=== PATIENT | male | born 1970 | race Caucasian/White ===

== ENCOUNTER 2024-10-06 13:18 | Inpatient (IN) | payer OTHER ==
[2024-10-06] VITALS (29 sets, daily range): BP systolic 105–153; BP diastolic 60–105; PULSE 70–99; RESP 15–22; TEMP 97.8–98.9; O2SAT 89–100
[~2024-10-06] VITALS: Ht 180.3 cm; Wt 107.5 kg
[2024-10-06] MEDS ORDERED: SODIUM CHLORIDE 0.9% 1000ML 1,000 ML IV SCH (13:45)
[2024-10-06 14:18] LABS: BASOPHILS % 0.4 % (0.0-1.0); EOSINOPHILS # (AUTO) 0.1 (0.0-0.4); HEMATOCRIT 46.8 % (38.2-49.6); HEMOGLOBIN 13.8 g/dL (14.0-18.0); LYMPHOCYTES # (AUTO) 1.7 (1.0-3.2); LYMPHOCYTES % 25.3 % (18.0-39.1); MEAN CORPUSCULAR HEMOGLOBIN 28.2 pg (28-32); MEAN CORPUSCULAR HGB CONC 29.5 g/dL (31-35); MEAN CORPUSCULAR VOLUME 95.7 fL (81-99); MONOCYTES # (AUTO) 0.6 (0.2-0.8); MONOCYTES % 8.6 % (4.4-11.3); NEUTROPHILS # (AUTO) 4.3 (2.1-6.9); NEUTROPHILS % 64.3 % (38.7-80.0); PLATELET COUNT 142 x10e3/uL (140-360); RED BLOOD COUNT 4.89 x10e6/uL (4.3-5.7); RED CELL DISTRIBUTION WIDTH 13.2 % (11.7-14.4); WHITE BLOOD COUNT 6.75 x10e3/uL (4.8-10.8)
[2024-10-06] MEDS: OSELTAMIVIR PHOSPHATE 75 MG CAP PO ONE (14:19)
[2024-10-06 14:20] LABS: ABG PH 7.28 (7.35-7.45)
[2024-10-06] MEDS: ACETAMINOPHEN 1000 MG/100 ML IV STA (14:20)
[2024-10-06 14:21] LABS: ABG HCO3 36 mmol/L (22-26); ABG PCO2 77 mmHg (35-45); ABG PO2 72 mmHg (80-105); ABG TCO2 38
[2024-10-06] MEDS: KETOROLAC TROMETHAMINE 30 MG/ML VIAL IV STA (14:21)
[2024-10-06] MEDS: PIPERACILLIN/TAZOBACTAM 4.5 GM in SODIUM CHLORIDE 0.9% 100 ML IV SCH (14:21)
[2024-10-06] MEDS: ALBUTEROL/IPRATROPIUM 3 ML NEB NEB ONE (14:23)
[2024-10-06] MEDS: DEXAMETHASONE SOD PHOS 10 MG/1 ML VIAL IV ONE (14:24)
[2024-10-06 14:34] LABS: INFLUENZA A AG NEGATIVE (NEGATIVE)
[2024-10-06 14:35] LABS: CORONAVIRUS COVID-19 AG NEGATIVE (NEGATIVE); INFLUENZA B AG NEGATIVE (NEGATIVE)
[2024-10-06 14:40] LABS: ALBUMIN 3.3 g/dL (3.5-5.0); ALBUMIN/GLOBULIN RATIO 0.9 (0.8-2.0); ANION GAP 15.4 mmol/L (8-16); BILIRUBIN,TOTAL 1.2 mg/dL (0.2-1.2); CREATININE, SERUM 0.98 mg/dL (0.72-1.25); POTASSIUM 4.4 mmol/L (3.5-5.1); TOTAL PROTEIN 6.8 g/dL (6.5-8.1)
[2024-10-06] MEDS: INSULIN REGULAR, HUMAN 100 UNIT/1 ML IV ONE (14:58)
[2024-10-06] MEDS: ALBUTEROL SULF 0.083% NEB SOLN 3 ML NEB NEB PRN (15:14)
[2024-10-06] MEDS ORDERED: DEXTROSE 50% SYRINGE 50 ML IV PRN (18:00)
[2024-10-06] MEDS ORDERED: CLOPIDOGREL75 MG PO (18:11)
[2024-10-06] MEDS ORDERED: NEURONTIN300 MG PO (18:11)
[2024-10-06] MEDS ORDERED: FERROUS SULFAT325 MG PO (18:11)
[2024-10-06] MEDS ORDERED: FUROSEMIDE40 MG PO (18:11)
[2024-10-06] MEDS ORDERED: ROPINIROLE HCL1 MG PO (18:11)
[2024-10-06] MEDS ORDERED: LOSARTAN POTASS25 MG PO (18:11)
[2024-10-06] MEDS ORDERED: OMEPRAZOLE40 MG PO (18:11)
[2024-10-06] MEDS ORDERED: ASPIRIN81 MG PO (18:11)
[2024-10-06] MEDS ORDERED: ATORVASTATIN CA20 MG PO (18:11)
[2024-10-06] MEDS ORDERED: MIRTAZAPINE15 MG PO (18:11)
[2024-10-06] MEDS ORDERED: TRESIBA100 UNIT/1 SC (18:11)
[2024-10-06] MEDS ORDERED: COREG12.5 MG PO (18:11)
[2024-10-06] MEDS ORDERED: MELATONIN3 MG PO (18:11)
[2024-10-06] MEDS: FUROSEMIDE INJ 10 MG/ML 4 ML VIAL IV STA (18:13)
[2024-10-06] MEDS: INSULIN GLARGINE 100 UNITS/ML VIAL SQ SCH (21:00)
[2024-10-06] MEDS: ATORVASTATIN 40 MG TAB PO SCH (21:00)
[2024-10-06] MEDS: INSULIN REGULAR, HUMAN 100 UNIT/1 ML SQ SCH (21:00)
[2024-10-07] VITALS (13 sets, daily range): BP systolic 123–161; BP diastolic 72–89; PULSE 78–106; RESP 12–20; O2SAT 88–99
[2024-10-07] MEDS ORDERED: PANTOPRAZOLE SOD 40 MG TABEC PO SCH (07:30)
[2024-10-07] MEDS ORDERED: FERROUS SULFATE 325 MG TAB PO SCH (09:00)
[2024-10-07] MEDS ORDERED: ASPIRIN 81 MG CHEW TAB PO SCH (09:00)
[2024-10-07] MEDS ORDERED: CLOPIDOGREL BISULFATE 75 MG TAB PO SCH (09:00)
[2024-10-08 06:51] LABS: ABG HCO3 36 mmol/L (22-26); ABG PCO2 77 mmHg (35-45); ABG PH 7.28 (7.35-7.45); ABG PO2 72 mmHg (80-105); ABG TCO2 38
== END 2024-10-07 03:15 | disposition left against medical advice (07) | DRG 871 ==
LOC: ER 13:31 → ERHOLD 14:57 → ICU 17:17
PROVIDERS: ADMIT Family Medicine; ATTEND Family Medicine
PROC: 5A09357 Assistance with Respiratory Ventilation, Less than 24 Consecutive Hours, Continuous Positive Airway Pressure (ICD-10-PCS; principal; 2024-10-06)
PROC: 4A133R1 Monitoring of Arterial Saturation, Peripheral, Percutaneous Approach (ICD-10-PCS; 2024-10-06)
PROC: 4A133R1 Monitoring of Arterial Saturation, Peripheral, Percutaneous Approach (ICD-10-PCS; 2024-10-06)
PROC: 3E03329 Introduction of Other Anti-infective into Peripheral Vein, Percutaneous Approach (ICD-10-PCS; 2024-10-06)
DX: A41.9 Sepsis, unspecified organism (principal); J96.01 Acute respiratory failure with hypoxia; J96.22 Acute and chronic respiratory failure with hypercapnia; J98.11 Atelectasis; I11.0 Hypertensive heart disease with heart failure; I50.9 Heart failure, unspecified; E78.5 Hyperlipidemia, unspecified; Z53.29 Procedure and treatment not carried out because of patient's decision for other reasons; I25.10 Atherosclerotic heart disease of native coronary artery without angina pectoris; Z95.1 Presence of aortocoronary bypass graft; G47.33 Obstructive sleep apnea (adult) (pediatric); J45.909 Unspecified asthma, uncomplicated; E11.9 Type 2 diabetes mellitus without complications; Z79.4 Long term (current) use of insulin; F41.9 Anxiety disorder, unspecified; Z11.52 Encounter for screening for COVID-19; Z79.899 Other long term (current) drug therapy; Z79.82 Long term (current) use of aspirin; Z79.02 Long term (current) use of antithrombotics/antiplatelets
CPT/HCPCS: 36415; 36600; 71045; 80053; 82805; 82948; 83605; 85025; 87040; 93005; 94660; 94799; 99284; J1100; J1885; J1940; J2543; J7050